=== PATIENT | male | born 1955 | race Caucasian/White ===

== ENCOUNTER 2019-11-09 19:36 | Inpatient (IN) | payer OTHER, SELFPAY ==
[2019-11-09] MEDS ORDERED: Sodium Chloride 0.9% 50 ML ONE (19:44)
[2019-11-09] MEDS ORDERED: Bacitracin Zinc Ointment 30 gm TUBE ONE (19:44)
[2019-11-09] MEDS ORDERED: Heparin 10,000 UNITS/1 ML VIAL ONE (19:44)
[2019-11-09] MEDS ORDERED: Thrombin 5000 UNITS/5 ML VIAL ONE (19:44)
[2019-11-09] MEDS ORDERED: Hetastarch 6% 500 ML 500 ML ONE (19:44)
[2019-11-09] MEDS ORDERED: Bupivacaine PF 0.5% 30 ML VIAL ONE (19:44)
[2019-11-09] MEDS ORDERED: Lidocaine 2% PF 5 ML VIAL ONE (19:44)
[2019-11-09] MEDS ORDERED: Morphine Sulfate 2 MG/ML SYRINGE SLOW IVP PRN (19:59)
[2019-11-09] MEDS ORDERED: Promethazine HCl 25 MG/ML VIAL IM PRN (19:59)
[2019-11-09] MEDS ORDERED: Promethazine HCl 25 MG/ML VIAL SLOW IVP PRN (19:59)
[2019-11-09] MEDS ORDERED: HYDROmorphone 2 MG/ML VIAL SLOW IVP PRN (19:59)
[2019-11-09] MEDS ORDERED: Ondansetron HCl/PF 4 MG/2 ML Vial IVP PRN (19:59)
[2019-11-09] MEDS ORDERED: Meperidine HCl/PF 25 MG/ML VIAL SLOW IVP PRN (19:59)
[2019-11-09] MEDS ORDERED: PACU-Morphine 4MG/ML VIAL SLOW IVP PRN (19:59)
[2019-11-09] MEDS ORDERED: Ondansetron PF 4 MG/2 ML Vial ONE (20:47)
[2019-11-09] MEDS ORDERED: Lidocaine 1% PF 5 ML VIAL ONE (20:47)
[2019-11-09] MEDS ORDERED: Dexamethasone 20 MG/5 ML VIAL ONE (20:47)
[2019-11-09] MEDS ORDERED: PHENYLEPHRINE-NS 100 MCG/ML 10 ML SYRINGE ONE (20:47)
[2019-11-09] MEDS ORDERED: Glycopyrrolate 0.2 MG/ML 5 ML SYRINGE ONE (20:47)
[2019-11-09] MEDS ORDERED: Rocuronium Bromide 10 MG/ML (10ML VIAL) ONE (20:47)
[2019-11-09] MEDS ORDERED: PROPOFOL 200 MG/20 ML VIAL ONE (20:47)
[2019-11-09] MEDS ORDERED: ePHEDrine/0.9% NaCl/PF SYRINGE 50 mg/10 ml ONE (20:47)
[2019-11-09] MEDS ORDERED: Fentanyl 100 MCG/2 ML VIAL ONE ×2 (20:49→23:06)
[2019-11-09] MEDS ORDERED: Ondansetron PF 4 MG/2 ML Vial IV PRN (23:53)
[2019-11-09] MEDS ORDERED: HYDROcodone/Acetaminophen 5/325 mg Tablet PO PRN (23:53)
[2019-11-09] MEDS ORDERED: Acetaminophen 325 MG TAB PO PRN (23:53)
[2019-11-09] MEDS ORDERED: Morphine 2 MG/ML SYRINGE SLOW IVP PRN (23:53)
[2019-11-09] MEDS ORDERED: Ketorolac Tromethamine 30 MG/ML VIAL IVP SCH (23:59)
[2019-11-10] MEDS ORDERED: Meperidine HCl/PF 25 MG/ML VIAL IM PRN (00:11)
[2019-11-10 01:21] VITALS: BMI 28.9
[2019-11-10] MEDS: Ketorolac Tromethamine 30 MG/ML VIAL IVP SCH ×4 (01:31→20:28)
[2019-11-10] MEDS ORDERED: TETANUS AND DIPHTHERIA TOX/PF 0.5 ML DISP.SYRIN IM SCH (02:00)
[2019-11-10] MEDS: traMADol HCl 50 MG TAB PO PRN (04:01)
[2019-11-10 05:06] LABS: Anion Gap 11 mmol/L (10-20); BUN (Urea Nitrogen) 11 mg/dL (8.4-25.7); Calc. Creatinine Clearance 128 mL/min (70-130); Carbon Dioxide 24 mmol/L (23-31); Chloride 104 mmol/L (98-107); Estimated GFR-MDRD Greater than 90; Glucose 181 mg/dL (80-115); Potassium 4.1 mmol/L (3.5-5.1); Sodium 135 mmol/L (136-145)
[2019-11-10] MEDS: Vancomycin HCl 1 GM in Premix Bag 1 BAG IVPB SCH ×3 (06:31→22:02)
[2019-11-10] MEDS: Aspirin 81 mg Enteric Coated Tablet PO SCH ×2 (08:15→20:29)
[2019-11-11] MEDS: Ketorolac Tromethamine 30 MG/ML VIAL IVP SCH ×3 (02:54→17:06)
[2019-11-11 05:51] LABS: Vancomycin, Trough 11.7 ug/mL
[2019-11-11] MEDS: Vancomycin HCl 1 GM in Premix Bag 1 BAG IVPB SCH (06:13)
[2019-11-11] MEDS: Aspirin 81 mg Enteric Coated Tablet PO SCH (08:57)
[2019-11-11] MEDS ORDERED: Fentanyl 100 MCG/2 ML VIAL ONE ×2 (11:16→14:17)
[2019-11-11] MEDS ORDERED: Bupivacaine PF 0.5% 30 ML VIAL ONE (12:02)
[2019-11-11] MEDS ORDERED: Sodium Chloride 0.9% 10 ML ONE (12:03)
[2019-11-11] MEDS ORDERED: Bacitracin Zinc Ointment 30 gm TUBE ONE ×2 (12:03→14:42)
[2019-11-11] MEDS ORDERED: Thrombin 5000 UNITS/5 ML VIAL ONE (12:03)
[2019-11-11] MEDS ORDERED: Ondansetron PF 4 MG/2 ML Vial ONE (12:09)
[2019-11-11] MEDS ORDERED: Dexamethasone 20 MG/5 ML VIAL ONE (12:09)
[2019-11-11] MEDS ORDERED: Lidocaine 1% PF 5 ML VIAL ONE (12:09)
[2019-11-11] MEDS ORDERED: Metoclopramide HCl 10 MG/2 ML VIAL ONE (12:09)
[2019-11-11] MEDS ORDERED: PROPOFOL 200 MG/20 ML VIAL ONE (12:09)
[2019-11-11] MEDS ORDERED: Ketorolac Tromethamine 30 MG/ML VIAL ONE (13:45)
[2019-11-11] MEDS ORDERED: Vancomycin HCl 1.25 GM in Sodium Chloride 0.9% 250 ML 250 ML IVPB SCH (14:00)
[2019-11-11] MEDS ORDERED: Meperidine HCl/PF 25 MG/ML VIAL SLOW IVP PRN (14:31)
[2019-11-11] MEDS ORDERED: HYDROmorphone 2 MG/ML VIAL SLOW IVP PRN (14:31)
[2019-11-11] MEDS ORDERED: Promethazine HCl 25 MG/ML VIAL SLOW IVP PRN (14:31)
[2019-11-11] MEDS ORDERED: Ondansetron HCl/PF 4 MG/2 ML Vial IVP PRN (14:31)
[2019-11-11] MEDS ORDERED: Sodium Chloride 0.9% 20 ML ONE (14:42)
[2019-11-11 17:21] VITALS: BP 165/76; TEMP 97.3
[2019-11-11] MEDS ORDERED: Morphine 2 MG/ML SYRINGE SLOW IVP PRN (17:33)
[2019-11-11] MEDS: traMADol HCl 50 MG TAB PO PRN (20:19)
--- NOTE | 2019-11-11 23:43 | OP ---
DATE OF PROCEDURE: 11/11/2019 PREOPERATIVE DIAGNOSIS: 20 cm wound open after previous operative procedures approximately 48 hours prior. POSTOPERATIVE DIAGNOSES: 1. Wound 22 cm with no infection. 2. Arterial and neuroplasty sites intact. 3. Separation, flexor digitorum superficialis muscle mid tendon musculotendinous from previous repair. PROCEDURES PERFORMED: 1. Wound debridement, [address], level 2. 2. Wound closure, 22 cm, complex. 3. Flexor digitorum superficialis repair, nearly at the musculotendinous junction, application of long-arm splint. DESCRIPTION OF PROCEDURE: After successful general endotracheal anesthesia, the limb was prepped and draped. The VAC dressing had been removed. We did not inflate the tourniquet, lifted up the wound edges, so one small speck of debris underneath one subcutaneous skin flap, none deep. We also could easily inspect the ulnar artery repair at flexor digitorum superficialis tendon repair and at the musculotendinous junction, and we could visualize the nerve and artery, and there was no infection or debris around the bed, and the repairs remain intact as did the neural tube from the previous procedure. Now, we debrided the wound edges 1 mm circumferentially using the same technique with different wound debridement. 1. Excision technique. 2. Using instruments: Tenotomy scissors, [place] blade, Adson, and the 1 L Pulsavac. 3. The depth was down to and include muscle bellies and tendinous junction and there was no evidence of gross infection and only one small debride spot, so wound closure was anticipated. We then irrigated with 3 L normal saline Pulsavac pressure. We brought a 3-0 loop suture on the field and performed a technique primary repair with flexion established and the over-sew for paratenon stitches with 5-0 Prolene. We then placed a drain Hemovac and brought out through a separate stab wound for closing the dermis with a running 3-0 Monocryl and epidermis with 3-0 nylon in interrupted mattress pattern. The patient had been given before the procedure and began circumferentially 30 mL of 0.5% Marcaine block in preparation for discharge. A long-arm splint was applied with the drain visible for removal and the wrist at 30 degrees of flexion, the MP joints at 85 degrees of flexion, and PIPs at 35 degrees of flexion. Job ID: [id number]
--- NOTE | 2019-11-12 08:42 | OP ---
DATE OF PROCEDURE: 11/09/2019 COMPLICATIONS: None. TOURNIQUET TIME: 50 minutes. ESTIMATED BLOOD LOSS: 150 mL. PREOPERATIVE DIAGNOSES: 1. Wound with tendon involvement, approximately 15 cm. 2. Flexor digitorum superficialis laceration to all tendons. 3. Flexor carpi ulnaris laceration, complete. 4. Palmaris longus laceration, all at the musculotendinous junction of the palmaris, which has still had 2 cm of tendon still proximal to the laceration. 5. Ulnar nerve sheath injury without defect or separation. 6. Ulnar artery laceration, complete. PROCEDURES PERFORMED: 1. Debridement of wound. 2. Flexor digitorum superficialis repair, index finger. 3. Flexor digitorum superficialis repair, long finger. 4. Flexor digitorum superficialis repair, ring finger. 5. Flexor digitorum superficialis repair, small finger. 6. Palmaris longus repair. 7. Flexor carpi ulnaris repair. 8. Microscopic ulnar nerve neuroplasty, mid-proximal third forearm level. 9. Ulnar artery repair, mid-proximal third forearm level, microscopic. 10. Application of long-arm splint. Again, all these are zone V lacerations. INDICATION: The patient had a round injury to his hand on the night of admission. He was brought to the operating room because of copious bleeding indicative of where the incision was located in the ulnar artery. This should not be made to wait till next morning. DESCRIPTION OF PROCEDURE: The patient was taken to the operating room. Immediately, before going to operating room, he underwent prepping, draping, and counseling of he and his family. Once prepped and draped, a sterile tourniquet was applied and we inflated the tourniquet after exsanguination of the limb to 250 mmHg pressure. We extended this incision approximately 4 cm proximal and 4 cm distal, so we could expose the entire injury zone down to the area of all good tendon not injured. We then inspected and found a copious hematoma, complete laceration of palmaris longus, flexor carpi ulnaris, and flexor digitorum superficialis, all 4 just distal to the musculotendinous junction, leaving tendon on both sides for repair. We then brought tenotomy scissors, [place] blade, 11-blade knife, El scissors, Adson's, intermediate-size Rakes, and 5 L of Pulsavac as our equipment for debridement. Debridement was excisional and down to include neurovascular bundle. We could also visualize the bone on inspection to make sure no debris into an area of concern. This was done to make sure debridement completely removed at least 10 individual specks of particles that were plastic or hard in nature. Final irrigation seemed to clear these and even on the magnification with loupes and we decided to approach tendon repair, but not closed the wound that day. We brought the musculotendinous junction of the flexor carpi ulnaris into repair with interrupted [id number] sutures, multiple with #1 Ethibond on OS-4 needle. Then, we performed similar repair to the musculotendinous junction of all the flexor digitorum superficialis and had excellent tension at the end of procedure and this was maintained. Finally, we used a Prolene, multiple [id number] into the palmaris longus. Once all of this was complete, we then inspected the wound, placed the white sponge cut out to fit the wound, black sponge cut out to fit the wound and on top of this with the VAC suction applied and ready to work. We placed the suction tube in. Once the suction tube was in place, then the VAC had excellent suction and we prepared the patient for this. After tendon repairs, then the microscope was brought into the field and performed a neuroplasty throughout the entire available field, that is 5 cm on either side of the ulnar nerve at this juncture and we saw a small sheath irritation, which we debrided under microscope but no true lacerations. We then saw, however, a two-hole segmental laceration of the ulnar artery, so with microscope intact, we released the tourniquet, placed clamps on either side to control the bleeding, used the Jc solution to make sure we removed the hematoma, and used an 8-0 nylon under microscope to repair the artery. We released it from both sides with not only good flow, but there was no posturing or other abnormality with the flow, so we knew we had a good repair. We then released the retraction in the muscles, obtained hemostasis subcutaneously, and then placed a VAC dressing with a white sponge cut out to fit the wound and black sponge slightly less in diameter and next sponge on top of the white. Job ID: [id number]
== END 2019-11-11 20:32 | disposition home or self-care (01) | DRG 909 ==
LOC: SDC 19:36 → SURG B 23:53 → UNDOADMIN 11-10 00:11 → UNDODISIN 11-11 20:32
PROVIDERS: ADMIT Orthopaedic Surgery Hand Surgery; ATTEND Orthopaedic Surgery Hand Surgery
PROC: 0KBB0ZZ Excision of Left Lower Arm and Wrist Muscle, Open Approach (ICD-10-PCS; principal; 2019-11-11)
DX: T81.31XA Disruption of external operation (surgical) wound, not elsewhere classified, initial encounter (principal)
CPT/HCPCS: 36415; 80048; 80202; J1100; J1644; J1885; J2001; J2405; J2704; J2765; J3010; J3370; J3490; S0020